=== PATIENT | male | born 1950 | race Caucasian/White ===

== ENCOUNTER 2022-03-23 12:26 | Day surgery (SDC) | payer MEDICARE, OTHER ==
[~2022-03-23] VITALS: Ht 170.2 cm; Wt 104.3 kg
[~2022-03-23 12:26] MED LIST: ESOM20 PO; NAPR220 PO; NAPR500
[2022-03-23] MEDS ORDERED: ATOR80 PO (13:44)
[2022-03-23] MEDS ORDERED: METO25ER PO (13:44)
[2022-03-23] MEDS ORDERED: Prinivil10 MG PO (13:44)
[2022-03-23] MEDS ORDERED: TAMS.4ER PO (13:44)
[2022-03-23] MEDS ORDERED: ROPI.25 PO (13:45)
[2022-03-23] MEDS ORDERED: METF500 PO (13:45)
[2022-03-23] MEDS ORDERED: MIRT30 PO (13:45)
[2022-03-23] MEDS ORDERED: ASPI81CH PO (13:46)
[2022-03-23] MEDS ORDERED: IBUP400 PO (13:46)
== END 2022-03-23 15:14 | disposition home or self-care (01) ==
LOC: ORSCSDS 12:26
PROVIDERS: Ophthalmology
PROC: 08RJ3JZ Replacement of Right Lens with Synthetic Substitute, Percutaneous Approach (ICD-10-PCS; principal; 2022-03-23 13:30)
DX: H25.11 Age-related nuclear cataract, right eye (principal); E11.9 Type 2 diabetes mellitus without complications; I25.10 Atherosclerotic heart disease of native coronary artery without angina pectoris; I10 Essential (primary) hypertension; E78.5 Hyperlipidemia, unspecified; N40.0 Benign prostatic hyperplasia without lower urinary tract symptoms; Z79.82 Long term (current) use of aspirin; Z79.84 Long term (current) use of oral hypoglycemic drugs; Z79.899 Other long term (current) drug therapy
CPT/HCPCS: 82947; J2001; J2250; J3010; J3301; J7040; V2632

== ENCOUNTER 2022-04-01 11:18 | Day surgery (SDC) | payer MEDICARE, OTHER ==
[~2022-04-01] VITALS: Ht 170.2 cm; Wt 104.4 kg
[~2022-04-01 11:18] MED LIST changes: +ASPI81CH PO; +ATOR80 PO; +IBUP400 PO; +METF500 PO; +METO25ER PO; +MIRT30 PO; +Prinivil10 MG PO; +ROPI.25 PO; +TAMS.4ER PO
--- NOTE | 2022-04-01 12:02 | NUR ---
04/01/22 1202 Tita Baker CALL LIGHT WITHIN REACH. TETRACAINE AT 1158 IN THE LEFT EYE AND PLEDGETT AT 1200
== END 2022-04-01 13:33 | disposition home or self-care (01) ==
LOC: ORSCSDS 11:18
PROVIDERS: Ophthalmology
PROC: 08RK3JZ Replacement of Left Lens with Synthetic Substitute, Percutaneous Approach (ICD-10-PCS; principal; 2022-04-01 12:30)
DX: H25.12 Age-related nuclear cataract, left eye (principal); H21.81 Floppy iris syndrome; Z96.1 Presence of intraocular lens; E11.9 Type 2 diabetes mellitus without complications; I25.10 Atherosclerotic heart disease of native coronary artery without angina pectoris; I10 Essential (primary) hypertension; K21.9 Gastro-esophageal reflux disease without esophagitis; E78.5 Hyperlipidemia, unspecified; E66.9 Obesity, unspecified; Z68.36 Body mass index [BMI] 36.0-36.9, adult; Z79.82 Long term (current) use of aspirin; Z79.84 Long term (current) use of oral hypoglycemic drugs; Z79.899 Other long term (current) drug therapy
CPT/HCPCS: 82947; J2250; J3010; J3301; J7040; V2632

== ENCOUNTER 2023-11-27 08:43 | Emergency (ER) | payer OTHER ==
[~2023-11-27] VITALS: Ht 170.2 cm; Wt 99.8 kg
[2023-11-27 10:18] VITALS: BP 104/66
[2023-11-29] MEDS ORDERED: OxyCODONE HCL 5 MG TAB PO ONE (09:45)
== END 2023-11-27 10:18 | disposition home or self-care (01) ==
LOC: ER 08:43
DX: T83.091A Other mechanical complication of indwelling urethral catheter, initial encounter (principal); Y73.2 Prosthetic and other implants, materials and accessory gastroenterology and urology devices associated with adverse incidents; I10 Essential (primary) hypertension; E78.5 Hyperlipidemia, unspecified; K21.9 Gastro-esophageal reflux disease without esophagitis; Z79.84 Long term (current) use of oral hypoglycemic drugs; Z79.82 Long term (current) use of aspirin; Z79.899 Other long term (current) drug therapy
CPT/HCPCS: 51702; 99283

== ENCOUNTER 2023-12-07 16:09 | Emergency (ER) | payer OTHER ==
[~2023-12-07] VITALS: Ht 170.2 cm; Wt 99.8 kg
[2023-12-07 16:21] VITALS: BP 158/121
[2023-12-07 18:04] LABS: Source, Urine Clean Catch
[2023-12-07 18:06] LABS: Appearance, Urine Cloudy (Clear); Bilirubin, Urine Neg (Neg); Blood, Urine 2+ (Neg); Color, Urine Yellow (P-Yellow); Glucose Qualitative, Urine Neg (Neg); Ketones, Urine Neg (Neg); Leukocyte Esterase, Urine 3+ (Neg); Nitrite, Urine Neg (Neg); Protein, Urine 2+ (Neg); Urobilinogen, Urine NORM (Normal)
[2023-12-07 18:25] LABS: Bacteria Many /hpf; Squamous Epithelial Cells Not Seen /hpf (Few); White Blood Cells, Urine TNTC /hpf (0-5)
== END 2023-12-07 18:43 | disposition home or self-care (01) ==
LOC: ER 16:09
PROVIDERS: Student in an Organized Health Care Education/Training Program
DX: T83.091A Other mechanical complication of indwelling urethral catheter, initial encounter (principal); Z79.899 Other long term (current) drug therapy; Z79.82 Long term (current) use of aspirin; Z79.84 Long term (current) use of oral hypoglycemic drugs; I10 Essential (primary) hypertension; E78.5 Hyperlipidemia, unspecified; K21.9 Gastro-esophageal reflux disease without esophagitis
CPT/HCPCS: 51702; 81001; 87077; 87086; 87186; 99283-25

== ENCOUNTER → 2024-03-05 | Outpatient (CLI) | payer OTHER ==
[~2024-03-05] MED LIST changes: +FUROSEMIDE20 MG PO; +SULTRIDS PO
[2024-03-05 13:32] LABS: Source, Urine Foley catheter
[2024-03-05 18:55] LABS: Appearance, Urine Cloudy (Clear); Bilirubin, Urine Neg (Neg); Blood, Urine 4+ (Neg); Color, Urine Yellow (P-Yellow); Glucose Qualitative, Urine Neg (Neg); Ketones, Urine Neg (Neg); Leukocyte Esterase, Urine 3+ (Neg); Nitrite, Urine Neg (Neg); Protein, Urine 3+ (Neg); Urobilinogen, Urine NORM (Normal)
[2024-03-05 19:46] LABS: Bacteria Many /hpf; Squamous Epithelial Cells Mod /hpf (Few); White Blood Cells, Urine TNTC /hpf (0-5)
[2024-03-05 19:47] LABS: Calcium Oxalate Crystals Mod /hpf
== END | disposition home or self-care (01) ==
LOC: LAB 13:29 → LAB SHORT 13:29
PROVIDERS: Physician Assistant
DX: N39.0 Urinary tract infection, site not specified (principal)
CPT/HCPCS: 81001; 87086

== ENCOUNTER → 2024-05-10 | Outpatient (CLI) | payer OTHER | END | disposition home or self-care (01) | LOC: LAB 17:40 → LAB SHORT 17:40 | DX: N39.0 Urinary tract infection, site not specified (principal) | CPT/HCPCS: 87086 ==

== ENCOUNTER → 2024-11-01 | Outpatient (CLI) | payer OTHER ==
[2024-11-01 19:41] LABS: Creatinine Urine 19.1 mg/dL (27.00-270.00); Protein, Urine Quantitative 10.5 mg/dL (0.0-11.9)
[2024-11-01 19:44] LABS: Microalbumin, Urine Quant. 38.5 mg/L (0.000-20.000)
[2024-11-06 13:54] LABS: HOURS COLLECTED 24 hr; TOTAL VOLUME 2700 mL
== END | disposition home or self-care (01) ==
LOC: LAB 09:53 → LAB SHORT 09:53
PROVIDERS: Internal Medicine Nephrology
DX: N18.30 Chronic kidney disease, stage 3 unspecified (principal); D75.1 Secondary polycythemia; N25.81 Secondary hyperparathyroidism of renal origin; E55.9 Vitamin D deficiency, unspecified; E78.00 Pure hypercholesterolemia, unspecified; D51.8 Other vitamin B12 deficiency anemias; D52.8 Other folate deficiency anemias; D50.9 Iron deficiency anemia, unspecified; R94.5 Abnormal results of liver function studies; R94.6 Abnormal results of thyroid function studies; R76.9 Abnormal immunological finding in serum, unspecified
CPT/HCPCS: 81050; 82043; 82570; 84156; 84166; 86335